=== PATIENT | male | born 1960 | race Caucasian/White ===

== ENCOUNTER 2017-07-20 21:18 | Observation (INO) | payer OTHER ==
[~2017-07-20] VITALS: Ht 175.3 cm; Wt 69.5 kg
[2017-07-20 22:37] LABS: HEMATOCRIT 39.9 % (38.0-50.0); HEMOGLOBIN 13.9 G/DL (12.5-16.6); MCHC 34.8 G/DL (30.0-36.0); MCV 88.9 FL (86-99); PLATELET COUNT 296 K/uL (156-360); RBC DIS.WIDTH-CV 12.4 % (11.8-14.6); RBC DIS.WIDTH-SD 40.4 % (39-53); RED BLOOD COUNT 4.49 M/uL (4.00-5.50); WHITE BLOOD COUNT 15.4 K/uL (4.1-10.2)
[2017-07-20 22:45] LABS: APPEARANCE CLEAR ((CLEAR)); BILIRUBIN NEGATIVE; BLOOD NEGATIVE; COLOR YELLOW ((YELLOW)); GLUCOSE (STRIP) NEGATIVE; KETONES 5; LEUKOCYTES NEGATIVE; NITRITE NEGATIVE; PROTEIN (STRIP) NEGATIVE; SPECIFIC GRAVITY 1.009 (1.000-1.030); UCUL ADDED? NO; UROBILINOGEN 0.2 MG/DL (0.2-1.0)
[2017-07-20 22:46] LABS: ALBUMIN 4.3 g/dL (3.2-4.8); CHLORIDE 106 mEq/L (99-109); POTASSIUM 4.1 mEq/L (3.7-5.4); SODIUM 139 mEq/L (136-147)
[2017-07-20 22:49] LABS: GLUCOSE 94 mg/dL (70-99); TOTAL PROTEIN 7.4 g/dL (6.4-8.3)
[2017-07-20 22:50] LABS: TOTAL BILIRUBIN 0.4 mg/dL (0.0-1.0)
[2017-07-20 22:51] LABS: AMPHETAMINE NEGATIVE (500 ng/mL); BARBITURATES NEGATIVE (200 ng/mL); BENZODIAZEPINES NEGATIVE (150 ng/mL); BUPRENORPHINE NEGATIVE (10 ng/mL); COCAINE NEGATIVE (150 ng/mL); METHADONE NEGATIVE (200 ng/mL); METHAMPHETAMINE NEGATIVE (500 ng/mL); OPIATES (MORPHINE) NEGATIVE (100 ng/mL); OXYCODONE NEGATIVE (100 ng/mL); PHENCYCLIDINE NEGATIVE (25 ng/mL); PROPOXYPHENE NEGATIVE (300 ng/mL); THC CANNABINOIDS NEGATIVE (50 ng/mL); TRICYCLIC ANTIDEPRESSANTS NEGATIVE (300 ng/mL)
[2017-07-20 22:52] LABS: ALKALINE PHOSPHATASE 71 IU/L (3-129); CREATININE 0.8 mg/dL (0.6-1.3); GFR ESTIMATE (CALCULATED) > 59 mL/min/ (58.99-99999); SERUM ETHYL ALCOHOL < 10 mg/dL
[2017-07-20 22:53] LABS: UREA NITROGEN (BUN) 19 mg/dL (9-23)
[2017-07-20 22:54] LABS: AST (GOT) 21 IU/L (2-34)
[2017-07-20 22:55] LABS: ALT (GPT) 18 IU/L (3-49)
[2017-07-20 22:56] LABS: LIPASE 29 U/L (1.0-51.0)
[2017-07-20 22:59] LABS: TROP-I INTERPRETATION NEGATIVE; TROPONIN-I < 0.01 ng/mL (0.0-0.30)
[2017-07-21 02:46] LABS: HEMATOCRIT 39.8 % (38.0-50.0); HEMOGLOBIN 13.7 G/DL (12.5-16.6); MCH 31.1 PG (29.0-34.0); MCHC 34.4 G/DL (30.0-36.0); MCV 90.2 FL (86-99); PLATELET COUNT 279 K/uL (156-360); RBC DIS.WIDTH-CV 12.6 % (11.8-14.6); RBC DIS.WIDTH-SD 41.3 % (39-53); RED BLOOD COUNT 4.41 M/uL (4.00-5.50); WHITE BLOOD COUNT 10.7 K/uL (4.1-10.2)
[2017-07-21 02:51] LABS: INTER. NORMALIZED RATIO 1.1
[2017-07-21 02:54] LABS: PTT 31.7 SEC (25-37)
[2017-07-21 02:57] LABS: ALBUMIN 4.2 g/dL (3.2-4.8); CHLORIDE 107 mEq/L (99-109); POTASSIUM 4.3 mEq/L (3.7-5.4); SODIUM 138 mEq/L (136-147)
[2017-07-21 02:59] LABS: GLUCOSE 90 mg/dL (70-99)
[2017-07-21 03:00] LABS: TOTAL PROTEIN 6.8 g/dL (6.4-8.3)
[2017-07-21 03:01] LABS: TOTAL BILIRUBIN 0.4 mg/dL (0.0-1.0)
[2017-07-21 03:03] LABS: ALKALINE PHOSPHATASE 68 IU/L (3-129); CREATININE 0.8 mg/dL (0.6-1.3); GFR ESTIMATE (CALCULATED) > 59 mL/min/ (58.99-99999)
[2017-07-21 03:04] LABS: UREA NITROGEN (BUN) 17 mg/dL (9-23)
[2017-07-21 03:05] LABS: AST (GOT) 20 IU/L (2-34)
[2017-07-21 03:06] LABS: ALT (GPT) 18 IU/L (3-49)
[2017-07-21 07:00] LABS: TROP-I INTERPRETATION NEGATIVE; TROPONIN-I < 0.01 ng/mL (0.0-0.30)
[2017-07-21 10:37] LABS: TROP-I INTERPRETATION NEGATIVE; TROPONIN-I < 0.01 ng/mL (0.0-0.30)
[2017-07-21] MEDS ORDERED: BUSPAR5 MG PO (10:42)
[2017-07-21] MEDS ORDERED: ASPIR-LOW81 MG PO (10:42)
[2017-07-21] MEDS ORDERED: PROTONIX40 MG PO (10:43)
[2017-07-21 12:08] VITALS: BP 113/77
== END 2017-07-21 12:00 | disposition home or self-care (01) ==
LOC: EME 21:18 → EDOF 07-21 02:01 → ENRESERV 07-21 02:02 → EDOF 07-21 12:00 → CANRESERV 07-21 12:34 → ENRESERV 07-21 12:34
PROVIDERS: Emergency Medicine; Internal Medicine Nephrology; Nurse Practitioner Family
DX: R07.89 Other chest pain (principal); K21.9 Gastro-esophageal reflux disease without esophagitis; F41.9 Anxiety disorder, unspecified; F17.210 Nicotine dependence, cigarettes, uncomplicated; Z79.82 Long term (current) use of aspirin; F41.0 Panic disorder [episodic paroxysmal anxiety]; D72.829 Elevated white blood cell count, unspecified; R13.10 Dysphagia, unspecified; R21 Rash and other nonspecific skin eruption; G89.29 Other chronic pain; M54.9 Dorsalgia, unspecified; Z98.890 Other specified postprocedural states; Z88.5 Allergy status to narcotic agent
CPT/HCPCS: 71046; 74177; 80053; 81003; 83690; 84484; 85027; 85610; 85730; 93005; C9113; G0378; G0480; J2060; J2250; S0028

== ENCOUNTER 2017-07-25 10:15 | Emergency (ER) | payer OTHER ==
[~2017-07-25] VITALS: Ht 175.3 cm; Wt 70.9 kg
[~2017-07-25 10:15] MED LIST: ASPIR-LOW81 MG PO; BUSPAR5 MG PO; PROTONIX40 MG PO
[2017-07-25 11:12] LABS: BASOPHIL (%) 0.3 % (0-1); EOSINOPHIL (%) 1.7 % (0-5); EOSINOPHIL COUNT 0.2 K/uL (0-0.3); HEMATOCRIT 39.1 % (38.0-50.0); HEMOGLOBIN 13.5 G/DL (12.5-16.6); IMMATURE GRANULOCYTE (%) 0.3 % (0.0-0.7); LYMPHOCYTE (%) 16.9 % (15-42); LYMPHOCYTE COUNT 1.7 K/uL (1.0-2.8); MCH 31.1 PG (29.0-34.0); MCHC 34.5 G/DL (30.0-36.0); MCV 90.1 FL (86-99); MONOCYTE (%) 6.8 % (3-12); MONOCYTE COUNT 0.7 K/uL (0-0.8); NEUTROPHIL COUNT 7.4 K/uL (1.8-6.4); PLATELET COUNT 286 K/uL (156-360); RBC DIS.WIDTH-CV 12.4 % (11.8-14.6); RBC DIS.WIDTH-SD 40.7 % (39-53); RED BLOOD COUNT 4.34 M/uL (4.00-5.50)
[2017-07-25 11:28] LABS: ALBUMIN 4.5 g/dL (3.2-4.8); CHLORIDE 105 mEq/L (99-109); POTASSIUM 4.2 mEq/L (3.7-5.4); SODIUM 137 mEq/L (136-147)
[2017-07-25 11:30] LABS: GLUCOSE 94 mg/dL (70-99); TOTAL PROTEIN 7.5 g/dL (6.4-8.3)
[2017-07-25 11:32] LABS: TOTAL BILIRUBIN 0.3 mg/dL (0.0-1.0)
[2017-07-25 11:34] LABS: ALKALINE PHOSPHATASE 68 IU/L (3-129); CREATININE 0.8 mg/dL (0.6-1.3); GFR ESTIMATE (CALCULATED) > 59 mL/min/ (58.99-99999)
[2017-07-25 11:36] LABS: AST (GOT) 21 IU/L (2-34); UREA NITROGEN (BUN) 26 mg/dL (9-23)
[2017-07-25 11:37] LABS: ALT (GPT) 20 IU/L (3-49)
[2017-07-25 12:41] VITALS: BP 157/90
== END 2017-07-25 12:44 | disposition home or self-care (01) ==
LOC: EME 10:15
PROVIDERS: Emergency Medicine
DX: F41.9 Anxiety disorder, unspecified (principal); E16.2 Hypoglycemia, unspecified; K21.9 Gastro-esophageal reflux disease without esophagitis
CPT/HCPCS: 80053; 82948; 85025; 93005; 99281; 99285

== ENCOUNTER → 2017-09-18 | Outpatient (CLI) | payer OTHER | END | disposition home or self-care (01) | LOC: NUC 09-10 08:30 | DX: R68.81 Early satiety (principal) | CPT/HCPCS: 78264; A9541 ==